=== PATIENT | female | born 1970 | race Caucasian/White ===

== ENCOUNTER 2017-03-05 18:11 | Emergency (ER) | payer MEDICAID ==
[~2017-03-05] VITALS: Ht 160 cm; Wt 72.6 kg
[2017-03-05] MEDS ORDERED: HYDROCODONE/APAP 10-325 MG TABLET PO ONE (18:45)
[2017-03-05] MEDS ORDERED: ONDANSETRON ODT 4 MG TAB.RAPDIS SL ONE (18:45)
--- NOTE | 2017-03-05 18:45 | NUR ---
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
[2017-03-05] MEDS ORDERED: ONDANSETRON ODT 4 MG TAB.RAPDIS ONE (18:51)
[2017-03-05] MEDS ORDERED: HYDROCODONE/APAP 10-325 MG TABLET ONE (18:52)
--- NOTE | 2017-03-05 19:12 | NUR ---
Assumed care of patient. No acute distress noted. Will continue to monitor
--- NOTE | 2017-03-05 19:36 | NUR ---
Patient discharged to home in stable conditon. Written and verbal after care instructions given. Patient verbalizes understanding of instructions. Ambulated from ER with stable gait. All belongings with patient. Patient will be driven home by significant other in a private vehicle.
[2017-03-05 19:39] VITALS: BP 122/78
== END 2017-03-05 19:42 | disposition home or self-care (01) ==
LOC: ER 18:12
DX: S20.219A Contusion of unspecified front wall of thorax, initial encounter (principal); S90.31XA Contusion of right foot, initial encounter; V43.52XA Car driver injured in collision with other type car in traffic accident, initial encounter; Y93.89 Activity, other specified; Y92.413 State road as the place of occurrence of the external cause; Y99.9 Unspecified external cause status
CPT/HCPCS: 71010; 73630; 93005; A4663; Q0162